=== PATIENT | female | born 2000 | race Caucasian/White ===

== ENCOUNTER → 2020-12-10 12:17 | Outpatient (CLI) | payer OTHER, SELFPAY ==
[2020-12-10] MEDS: COVID-19 VACC, Ad26(JANSSEN)/PF 0.5 ML IM (12:28)
== END ==
PROVIDERS: Visit Provider Internal Medicine
DX: Z23 Encounter for immunization (principal)
CPT/HCPCS: 0031A; 91303

== ENCOUNTER 2021-08-18 20:40 | Emergency (ER) | payer OTHER, MEDICAID, SELFPAY ==
[2021-08-18 20:56] VITALS: BP 134/84; PULSE 87; RESP 16; TEMP 36.7; O2SAT 98; BMI 39.4
--- NOTE | 2021-08-18 21:01 | ED_ITS ---
HPI - Abdominal Pain General Chief Complaint: Abdominal Pain Stated Complaint: sudden onset abd pain Time Seen by Provider: 08/18/21 20:44 Source: patient Mode of arrival: Ambulatory History of Present Illness HPI narrative: 21-year-old female nonsmoker with history of IBS presents with a chief complaint of a sudden onset left upper quadrant pain that started about 1 hour prior to her arrival. She states that seems to come and go in waves and without any obvious provocation or palliation. She is nauseated but denies any vomiting. S he denies any dysuria, frequency or urgency. She has no fever chills. She denies any change in medications or diet. She denies any bad food or recent travel. She does state that this feels different than her typical IBS discomfort. Related Data Previous Rx's Medication Instructions Recorded hyoscyamine sulfate 0.125 mg tablet 0.125 mg PO BID-QID PRN #20 tab 08/18/21 Review of Systems Review of Systems Narrative: GENERAL: Denies chills, fatigue, malaise, fever, sweats. HEENT: Denies sinus pain, ear pain, sore throat, difficulty swallowing, dizziness. RESPIRATORY: Denies dyspnea, cough, wheezing, hemoptysis, sputum. CARDIOVASCULAR: Denies chest pain, palpitations, orthopnea, edema, GASTROINTESTINAL: See HP : Denies dysuria, frequency, incontinence, hematuria, urinary retention. MUSCULOSKELETAL: denies weakness, joint pain, or bony pain SKIN: Denies rash, skin lesions, or other NEUROLOGIC: Denies weakness, headache, numbness, change in speech, confusion, seizures, incoordination. PSYCHIATRIC: No concerning psychosocial issues. 12 point review of systems is negative except for those stated above Patient History Social History Smoking Status: Never smoker Smoking Status: Never smoker Substance Use Type: does not use Exam Narrative Exam Narrative: GENERAL: 21 [] year old patient appears stated age. Well-developed patient, in mild distress. HEAD: Atraumatic. Normocephalic. EYES: Pupils equal round and reactive. Extraocular motions intact. No scleral icterus. No injection or drainage. ENT: Nose without bleeding, purulent drainage. Throat without erythema, tonsillar hypertrophy or exudate. Airway patent. NECK: Trachea midline. Non tender CARDIOVASCULAR: Regular rate and rhythm without murmurs, gallops, or rubs. RESPIRATORY: Clear to auscultation. Breath sounds equal bilaterally. No wheezes, rales, or rhonchi. GASTROINTESTINAL: Abdomen soft, tender in left upper quadrant, nondistended. Bowel sounds present in all 4 quadrants EXTREMITIES: No edema or joint tenderness. BACK: Nontender without deformity or crepitance. No flank tenderness. NEURO: AOx3. SKIN: No rash or erythema of visible areas Initial Vital Signs Initial Vital Signs: Vital Signs Temperature 98.1 F 08/18/21 20:56 Pulse Rate 87 08/18/21 20:56 Respiratory Rate 16 08/18/21 20:56 Blood Pressure 134/84 08/18/21 20:56 Pulse Oximetry 98 08/18/21 20:56 Course Orders Ordered: ED Orders 08/18/21 21:07 XR acute abdomen series Stat 08/18/21 21:20 Complete Blood Count AUTO DIFF Stat Comprehensive Metabolic Panel Stat Lipase Stat Discontinued Medications Sodium Chloride (Normal Saline 0.9%) 1,000 mls @ 1,000 mls/hr IV BOLUS ONE Stop: 08/18/21 22:04 Last Infusion: 08/18/21 22:48 Dose: 0 mls/hr Documented by: Admin: 08/18/21 21:31 Dose: 1,000 mls/hr Documented by: DANE Ondansetron HCl (Ondansetron 4 Mg/2 Ml Inj) 4 mg IV NOW ONE Stop: 08/18/21 21:06 Last Admin: 08/18/21 21:31 Dose: 4 mg Documented by: DANE Ondansetron HCl (Ondansetron 4 Mg Odt Prepack) 1 bottle MISC SEEINSTR ONE Stop: 08/18/21 22:29 Last Admin: 08/18/21 22:48 Dose: 1 bottle Documented by: DANE Pantoprazole Sodium (Pantoprazole 40 Mg Vial) 40 mg IV NOW ONE Stop: 08/18/21 21:06 Last Admin: 08/18/21 21:31 Dose: 40 mg Documented by: DANE Vital Signs Vital signs: Vital Signs - 8 hr 08/18/21 20:56 08/18/21 22:56 Temperature 98.1 F Pulse Rate 87 90 Respiratory Rate 16 20 Blood Pressure 134/84 135/63 Pulse Oximetry 98 98 MDM - Abdominal Pain Lab Data Result diagrams: 08/18/21 21:20 08/18/21 21:20 Labs: Lab Results 08/18/21 08/18/21 Range/Units 21:20 21:20 WBC 11.3 H (4.5-11.0) X10^3/uL RBC 4.56 (4.0-5.2) X10^6/uL Hgb 12.5 (12.0-16.0) g/dL Hct 38.0 (36-46) % MCV 83.3 (80-100) fL MCH 27.4 (26-34) PG MCHC 32.9 (30-36) % RDW 13.3 (11.6-14.8) % Plt Count 325 (150-400) X10^3/uL Neut % (Auto) 71.4 (50-75) % Lymph % (Auto) 23.4 L (25-40) % [place] % (Auto) 4.1 (3-14) % Eos % (Auto) 0.8 L (2-4) % Baso % (Auto) 0.3 (0-2) % Neut # (Auto) 8100 H (6700-2802) /uL Lymph # (Auto) 2700 (0343-2708) /uL [place] # (Auto) 500 (0-900) /uL Eos # (Auto) 100 (0-450) /uL Baso # (Auto) 0 (0-100) /uL Sodium 138 (137-145) mmol/L Potassium 3.9 (3.4-5.1) mmol/L Chloride 108 H (98-107) mmol/L Carbon Dioxide 28 (22-32) mmol/L BUN 8 (7-17) mg/dL Creatinine 0.44 L (0.52-1.04) mg/dL Estimated GFR > 60.0 (>60) mL/min BUN/Creatinine Ratio 18.2 (6-22) Glucose 129 H (70-100) mg/dL Calcium 8.6 (8.4-10.2) mg/dL Total Bilirubin 0.3 (0.2-1.3) mg/dL AST 27 (14-36) IU/L ALT 38 H (<35) IU/L Alkaline Phosphatase 67 (38-126) U/L Total Protein 7.5 (6.3-8.2) g/dL Albumin 4.0 (3.5-5.0) g/dL Globulin 3.5 (1.7-4.1) g/dL Albumin/Globulin Ratio 1.1 (1.0-2.8) Lipase 60 (23-300) U/L Point of care testing: Point of Care Testing Test Results Negative Urine Dip Bedside Urine Glucose Negative Bedside Urine Bilirubin - Negative Bedside Urine Ketone - Negative Urine Specific [place] 1.015 Bedside Urine Occult Blood - Negative Bedside Urine pH 8.5 Bedside Urine Protein - Negative Bedside Urine Urobilinogen - Negative Bedside Urine Nitrite - Negative Bedside Urine Leukocytes - Negative Esterase Imaging Data Abdominal x-ray: Radiologist's Impression: Anitha Baker??21??F??2000 ? Allergy/Adv: Not Recorded Close Chest/Abdomen X-ray (Signed) Josee Shields - 08/18/21 [place] [address] XRay Report Signed Patient: Anitha Baker MR#: [id number] : 2000 Acct:[id number] Age/Sex: 21 / F Date of Service: 08/18/21 Loc: ED Accession Number: [id number] ?? Procedure: XR acute abdomen series Ordering Provider: Eriberto Mares D.O. PROCEDURE:? XR ACUTE ABDOMEN SERIES ? INDICATIONS:? Abdominal pain ? TECHNIQUE:? One view chest and two views of the abdomen were acquired.? ? COMPARISON:? None. ? FINDINGS:? ? Surgical changes and devices:? None.? ? Chest:? Lungs are clear.? Heart size is normal.? No pleural effusions.? No pneumoperitoneum.? ? Abdomen:? Bowel gas pattern demonstrates moderate stool.? No obstruction.? No suspicious calcifications.? Visualized solid organ contours appear normal.? ? Bones:? No suspicious bony lesions.? ? IMPRESSION:? Constipation without obstruction. ? ? Dictated by: Josee Shields M.D. on 08/18/2021 at 22:19 ? ? Approved by: Josee Shields M.D. on 08/18/2021 at 22:20 ? MDM Narrative Medical decision making narrative: Patient with very reassuring history and physical exam. Labs show no significant findings and abdominal x-rays suggestive of constipation without obstruction. She had a near complete resolution of symptoms even before given any therapy through the IV. She ambulates to the department, pain is well controlled and she is tolerating orals. There is no indication for further imaging let alone hospitalization. She is given return precautions and questions have been answered to her apparent satisfaction Discharge Plan Departure Patient Disposition: Home Clinical Impression: Abdominal pain, Constipation Instructions: DI for Abdominal Pain-Adult Activity Restrictions/Additional Instructions: *You have been diagnosed with [ abdominal pain due to constipation ] *What to do: *Take over the counter medications as directed: 1. Metamucil - bulk forming laxative adds fiber 2. Colace - softens your stool 3. Dulcolax Suppository - stimulates your bowels from the bottom *Follow up with your primary care provider in 2-3 days, call for appointment *Return to ER if you should have any new, worsening or concerning symptoms *Drink plenty of water and eat foods high in fiber *Try to be as active as possible, consider walking your dog daily Prescription sent to [facility] your request Prescriptions: New hyoscyamine sulfate 0.125 mg tablet 0.125 mg PO BID-QID PRN (Reason: dyspepsia) Qty: 20 0RF
--- NOTE | 2021-08-18 21:07 | DI.RAD.S_ITS ---
PROCEDURE: XR ACUTE ABDOMEN SERIES INDICATIONS: Abdominal pain TECHNIQUE: One view chest and two views of the abdomen were acquired. COMPARISON: None. FINDINGS: Surgical changes and devices: None. Chest: Lungs are clear. Heart size is normal. No pleural effusions. No pneumoperitoneum. Abdomen: Bowel gas pattern demonstrates moderate stool. No obstruction. No suspicious calcifications. Visualized solid organ contours appear normal. Bones: No suspicious bony lesions. IMPRESSION: Constipation without obstruction. Dictated by: Josee Shields M.D. on 08/18/2021 at 22:19 Approved by: Josee Shields M.D. on 08/18/2021 at 22:20
[2021-08-18] MEDS: PANTOPRAZOLE 40 MG VIAL IV (21:31)
[2021-08-18] MEDS: SODIUM CHLORIDE 0.9% 1,000 ML 1000 ML IV (21:31)
[2021-08-18] MEDS: ONDANSETRON 4 MG/2 ML INJ IV (21:31)
[2021-08-18 21:35] LABS: Add Manual Diff / Slide Review NO; Basophils Absolute Auto 0 /uL (0-100); Basophils Percent Auto 0.3 % (0-2); Eosinophils Absolute Auto 100 /uL (0-450); Eosinophils Percent Auto 0.8 % (2-4); Hemoglobin 12.5 g/dL (12.0-16.0); Lymphocytes Absolute Auto 2700 /uL (1100-4500); Lymphocytes Percent Auto 23.4 % (25-40); Mean Corpuscular HGB Conc 32.9 % (30-36); Mean Corpuscular Hemoglobin 27.4 PG (26-34); Mean Corpuscular Volume 83.3 fL (80-100); Monocytes Absolute Auto 500 /uL (0-900); Monocytes Percent Auto 4.1 % (3-14); Neutrophils Absolute Auto 8100 /uL (1500-7000); Neutrophils Percent Auto 71.4 % (50-75); Platelet Count 325 X10^3/uL (150-400); Red Blood Cell Count 4.56 X10^6/uL (4.0-5.2); Red Cell Distribution Width 13.3 % (11.6-14.8); White Blood Cell Count 11.3 X10^3/uL (4.5-11.0)
[2021-08-18 21:45] LABS: Alanine Aminotransferase 38 IU/L (<35); Albumin Globulin Ratio 1.1 (1.0-2.8); Alkaline Phosphatase 67 U/L (38-126); Aspartate Aminotransferase 27 IU/L (14-36); BUN Creatinine Ratio 18.2 (6-22); Bilirubin Total 0.3 mg/dL (0.2-1.3); Blood Urea Nitrogen 8 mg/dL (7-17); Calcium 8.6 mg/dL (8.4-10.2); Carbon Dioxide 28 mmol/L (22-32); Chloride 108 mmol/L (98-107); Estimated Glomerular Filt Rate > 60.0 mL/min (>60); Globulin 3.5 g/dL (1.7-4.1); Glucose 129 mg/dL (70-100); HEMOLYSIS < 15 (0-50); Lipase 60 U/L (23-300); Potassium 3.9 mmol/L (3.4-5.1); Sodium 138 mmol/L (137-145); Total Protein 7.5 g/dL (6.3-8.2)
[2021-08-18] MEDS: ONDANSETRON 4 MG ODT PREPACK 1 BOTTLE MISC (22:48)
[2021-08-18 22:56] VITALS: BP 135/63; PULSE 90; RESP 20; O2SAT 98
== END 2021-08-18 22:58 | disposition home or self-care (01) ==
PROVIDERS: Emergency Provider Emergency Medicine
DX: K59.00 Constipation, unspecified (principal)
CPT/HCPCS: 36415; 74022; 80053; 81003; 81025; 83690; 85025; 96361; 96374; 96375; 99284; C9113; J2405

== ENCOUNTER 2021-10-02 15:43 | Emergency (ER) | payer OTHER, MEDICAID, SELFPAY ==
[2021-10-02 15:48] VITALS: BP 142/77; PULSE 81; RESP 16; TEMP 36.6; O2SAT 98; BMI 39.4
[2021-10-02 16:47] VITALS: BP 151/91; PULSE 78; RESP 18; O2SAT 99
[2021-10-02 17:30] LABS: Add Manual Diff / Slide Review NO; Basophils Absolute Auto 100 /uL (0-100); Basophils Percent Auto 0.5 % (0-2); Eosinophils Absolute Auto 100 /uL (0-450); Eosinophils Percent Auto 0.7 % (2-4); Hematocrit 37.5 % (36-46); Hemoglobin 12.4 g/dL (12.0-16.0); Lymphocytes Absolute Auto 2600 /uL (1100-4500); Lymphocytes Percent Auto 21.1 % (25-40); Mean Corpuscular HGB Conc 33.1 % (30-36); Mean Corpuscular Hemoglobin 27.7 PG (26-34); Mean Corpuscular Volume 83.6 fL (80-100); Monocytes Absolute Auto 800 /uL (0-900); Monocytes Percent Auto 6.2 % (3-14); Neutrophils Absolute Auto 8900 /uL (1500-7000); Neutrophils Percent Auto 71.5 % (50-75); Platelet Count 288 X10^3/uL (150-400); Red Blood Cell Count 4.49 X10^6/uL (4.0-5.2); Red Cell Distribution Width 13.6 % (11.6-14.8); White Blood Cell Count 12.4 X10^3/uL (4.5-11.0)
[2021-10-02 17:38] LABS: BUN Creatinine Ratio 32.6 (6-22); Blood Urea Nitrogen 15 mg/dL (7-17); Calcium 8.7 mg/dL (8.4-10.2); Carbon Dioxide 23 mmol/L (22-32); Chloride 110 mmol/L (98-107); Creatine Kinase 55 U/L (30-135); Estimated Glomerular Filt Rate > 60.0 mL/min (>60); Glucose 129 mg/dL (70-100); HEMOLYSIS < 15 (0-50); Potassium 3.6 mmol/L (3.4-5.1); Sodium 139 mmol/L (137-145)
[2021-10-02 17:39] LABS: D Dimer < 200 ng/mL (<230)
[2021-10-02 17:50] LABS: Troponin I < 0.012 ng/mL (0.01-0.034)
--- NOTE | 2021-10-02 18:10 | ED.CHESTPAIN ---
HPI - Chest Pain General Chief Complaint: Chest Pain Stated Complaint: Left sharp chest pain/stopped beating x20 minutes Time Seen by Provider: 10/02/21 17:07 Source: patient Mode of arrival: Ambulatory Limitations: no limitations Limitations: no limitations History of Present Illness HPI narrative: This is a 21-year-old female who presents with chest pain that started several hours earlier than last 1-2 hours. Patient has a history of asthma, anxiety and hypothyroidism. She states she does not take her medications daily. Patient states that the pain started substernally a little bit to the left side. She denies any shortness of breath. She denies any diaphoresis. No fevers or chills. No cold, cough or congestion. No nausea or vomiting. She has not had any new changes to her bowel movements but states she has IBS so she has intermittent diarrhea and constipation. She denies urinary symptoms. No rash or skin changes. She denies prior surgeries except for a benign lymph node removed from her right neck. Patient denies tobacco, alcohol or illicit besides marijuana gummies occasionally. No known drug allergies. Patient is accompanied by her biological father, there is family history of a grandparent with CHF and another grandparent with Parkinson's disease but no known cardiac, embolic or pulmonary history. Related Data Previous Rx's Medication Instructions Recorded hyoscyamine sulfate 0.125 mg tablet 0.125 mg PO BID-QID PRN #20 tab 08/18/21 Allergies Allergy/AdvReac Type Severity Reaction Status Date / Time No Known Drug Allergies Allergy Verified 10/02/21 16:00 Review of Systems Review of Systems ROS Unobtainable: All systems reviewed & are unremarkable except as noted in HPI and below Patient History Social History Smoking Status: Never smoker Smoking Status: Never smoker Substance Use Type: does not use Exam Narrative Exam Narrative: GENERAL: Alert and oriented x three, obese female in mild distress. HEENT: Head normocephalic, atraumatic, EOMI, pupils reactive, face symmetric, moist mucous membranes NECK: Supple, full range of motion CARDIOVASCULAR: Regular rate and rhythm without murmurs, rubs or gallops. RESPIRATORY: Breath sounds equal bilaterally, no wheezes rales or rhonchi. ABDOMEN: Soft, nontender. Nondistended. Normoactive bowel sounds all 4 quadrants. No guarding or rebound, rigidity, no mass : No CVA tenderness EXTREMITIES: Normal range of motion, no clubbing or edema. Neurovascularly intact NEUROLOGICAL: Cranial nerves II through XII grossly intact. Moving all extremities SKIN: Warm, dry, no petechiae, no rashes or lesions. Initial Vital Signs Initial Vital Signs: Vital Signs Temperature 97.8 F 10/02/21 15:48 Pulse Rate 81 10/02/21 15:48 Respiratory Rate 16 10/02/21 15:48 Blood Pressure 142/77 H 10/02/21 15:48 Pulse Oximetry 98 10/02/21 15:48 Scores HEART Score Heart Score history: Slightly Suspicious Heart Score EKG: Normal Heart Score Age: < 45 years old Heart Score risk factors: No known risk factors Heart Score troponin: < or = to normal limit Heart Score Total: 0 Course Orders Ordered: ED Orders 10/02/21 18:36 Chest [XR chest 1V] Stat 10/02/21 19:55 Troponin I Stat Reevaluation(s) Reevaluation #1: Patient does not have any chest pain. We reviewed her labs, chest x-ray. Discussed that it would be appropriate to repeat troponin at 2:00 a.m.. Patient is reluctant because she does not like the feel of the needle in her arm for the blood draw. Discussed risks versus benefits. Patient elects to try to do blood draw. Time: 19:27 Vital Signs Vital signs: Vital Signs - 8 hr 10/02/21 20:35 Pulse Rate 97 H Respiratory Rate 18 Blood Pressure 131/70 Pulse Oximetry 98 MDM - Chest Pain Lab Data Result diagrams: 10/02/21 17:20 10/02/21 17:20 Labs: Lab Results 10/02/21 10/02/21 10/02/21 Range/Units 17:20 17:20 17:20 WBC 12.4 H (4.5-11.0) X10^3/uL RBC 4.49 (4.0-5.2) X10^6/uL Hgb 12.4 (12.0-16.0) g/dL Hct 37.5 (36-46) % MCV 83.6 (80-100) fL MCH 27.7 (26-34) PG MCHC 33.1 (30-36) % RDW 13.6 (11.6-14.8) % Plt Count 288 (150-400) X10^3/uL Neut % (Auto) 71.5 (50-75) % Lymph % (Auto) 21.1 L (25-40) % [place] % (Auto) 6.2 (3-14) % Eos % (Auto) 0.7 L (2-4) % Baso % (Auto) 0.5 (0-2) % Neut # (Auto) 8900 H (8463-5968) /uL Lymph # (Auto) 2600 (8749-5943) /uL [place] # (Auto) 800 (0-900) /uL Eos # (Auto) 100 (0-450) /uL Baso # (Auto) 100 (0-100) /uL D-Dimer < 200 (<230) ng/mL Sodium 139 (137-145) mmol/L Potassium 3.6 (3.4-5.1) mmol/L Chloride 110 H (98-107) mmol/L Carbon Dioxide 23 (22-32) mmol/L BUN 15 (7-17) mg/dL Creatinine 0.46 L (0.52-1.04) mg/dL Estimated GFR > 60.0 (>60) mL/min BUN/Creatinine Ratio 32.6 H (6-22) Glucose 129 H (70-100) mg/dL Calcium 8.7 (8.4-10.2) mg/dL Total Creatine Kinase 55 (30-135) U/L CK-MB (CK-2) TNP CK-MB (CK-2) Rel Index TNP Troponin I < 0.012 (0.01-0.034) ng/mL 10/02/21 Range/Units 19:55 WBC (4.5-11.0) X10^3/uL RBC (4.0-5.2) X10^6/uL Hgb (12.0-16.0) g/dL Hct (36-46) % MCV (80-100) fL MCH (26-34) PG MCHC (30-36) % RDW (11.6-14.8) % Plt Count (150-400) X10^3/uL Neut % (Auto) (50-75) % Lymph % (Auto) (25-40) % [place] % (Auto) (3-14) % Eos % (Auto) (2-4) % Baso % (Auto) (0-2) % Neut # (Auto) (6830-8652) /uL Lymph # (Auto) (4013-9813) /uL [place] # (Auto) (0-900) /uL Eos # (Auto) (0-450) /uL Baso # (Auto) (0-100) /uL D-Dimer (<230) ng/mL Sodium (137-145) mmol/L Potassium (3.4-5.1) mmol/L Chloride (98-107) mmol/L Carbon Dioxide (22-32) mmol/L BUN (7-17) mg/dL Creatinine (0.52-1.04) mg/dL Estimated GFR (>60) mL/min BUN/Creatinine Ratio (6-22) Glucose (70-100) mg/dL Calcium (8.4-10.2) mg/dL Total Creatine Kinase (30-135) U/L CK-MB (CK-2) CK-MB (CK-2) Rel Index Troponin I < 0.012 (0.01-0.034) ng/mL Imaging Data Chest x-ray: Radiologist's Impression: [address] [address] XRay Report Signed Patient: Anitha Baker MR#: [id number] : 2000 Acct:[id number] Age/Sex: 21 / F Date of Service: 10/02/21 Loc: ED Accession Number: [id number] ?? Procedure: XR chest 1V Ordering Provider: Ching Singleton D.O. PROCEDURE:? XR CHEST 1V ? INDICATIONS:? chest pain ? TECHNIQUE:? One view of the chest was acquired.? ? COMPARISON:? [facility], CR, XR ACUTE ABDOMEN SERIES, 08/18/2021, 21:16. ? FINDINGS:? ? Surgical changes and devices:? None.? ? Lungs and pleura:? Lungs are clear.? No pleural effusions or pneumothorax.? ? Mediastinum:? Mediastinal contours appear normal.? Heart size is normal.? ? Bones and chest wall:? No suspicious bony lesions.? Overlying soft tissues appear unremarkable.? ? IMPRESSION:? Chest without acute cardiopulmonary abnormalities.? No focal airspace disease. ? ? Dictated by: Rene Sauceda M.D. on 10/02/2021 at 18:59 ? ? Approved by: Rene Sauceda M.D. on 10/02/2021 at 18:59? ECG Data Attestation: I personally reviewed and interpreted this ECG as follows: Prior ECG tracings: not available for review Interpretation: Sinus rhythm, rate 81 CO 120 QRS [address] QTC [address]. No acute ST elevation or depression. No priors for comparison. MDM Narrative Medical decision making narrative: This is a 21-year-old female comes in with complaint of left chest pain and a sensation that her heart stops beating for a 2nd and then restarted, she had pain she states maybe an hour although in her complaint 20 minutes. Patient is asymptomatic at this time. She is obese but does not have any other known risk factors at this time. Remove family risk factors besides a grandfather that had CHF and Parkinson's. Patient's heart score is 3. Chest x-ray is negative, labs are reassuring patient does not have other changes that are suspicious. Discharge Plan Departure Patient Disposition: Home Clinical Impression: Chest pain Instructions: DI for Chest Pain Activity Restrictions/Additional Instructions: Follow-up with your physician for recheck. Your labs, EKG and imaging today are reassuring. Please return for new or worsening symptoms, persistent chest pain, passing out, shortness of breath, fevers, new swelling in your extremities or other new or concerning symptoms. Prescriptions: No Action hyoscyamine sulfate 0.125 mg tablet 0.125 mg PO BID-QID PRN (Reason: dyspepsia) Qty: 20 0RF
--- NOTE | 2021-10-02 18:36 | DI.RAD.S_ITS ---
PROCEDURE: XR CHEST 1V INDICATIONS: chest pain TECHNIQUE: One view of the chest was acquired. COMPARISON: [facility], CR, XR ACUTE ABDOMEN SERIES, 08/18/2021, 21:16. FINDINGS: Surgical changes and devices: None. Lungs and pleura: Lungs are clear. No pleural effusions or pneumothorax. Mediastinum: Mediastinal contours appear normal. Heart size is normal. Bones and chest wall: No suspicious bony lesions. Overlying soft tissues appear unremarkable. IMPRESSION: Chest without acute cardiopulmonary abnormalities. No focal airspace disease. Dictated by: Rene Sauceda M.D. on 10/02/2021 at 18:59 Approved by: Rene Sauceda M.D. on 10/02/2021 at 18:59
[2021-10-02 20:26] LABS: Troponin I < 0.012 ng/mL (0.01-0.034)
[2021-10-02 20:35] VITALS: BP 131/70; PULSE 97; RESP 18; O2SAT 98
== END 2021-10-02 20:37 | disposition home or self-care (01) ==
PROVIDERS: Emergency Medicine; Emergency Provider Emergency Medicine
DX: R07.9 Chest pain, unspecified (principal)
CPT/HCPCS: 36415; 71045; 80048; 82550; 84484; 85025; 85379; 93005; 93010; 99283; 99284

== ENCOUNTER 2022-02-05 23:33 | Emergency (ER) | payer OTHER, MEDICAID, SELFPAY ==
[2022-02-05 23:48] VITALS: BP 129/71; PULSE 90; RESP 18; TEMP 36.8; O2SAT 98; BMI 40.3
[2022-02-06] VITALS (7 sets, daily range): BP systolic 120–126; BP diastolic 63–80; PULSE 73–83; RESP 10–15; O2SAT 96–98
--- NOTE | 2022-02-06 00:12 | DI.RAD.S_ITS ---
PROCEDURE: XR CHEST 1V INDICATIONS: chest pain TECHNIQUE: One view of the chest was acquired. COMPARISON: [facility], CR, XR CHEST 1V, 10/02/2021, 18:40. FINDINGS: Surgical changes and devices: None. Lungs and pleura: Lungs are clear. No pleural effusions or pneumothorax. Mediastinum: Mediastinal contours appear normal. Heart size is normal. Bones and chest wall: No suspicious bony lesions. Overlying soft tissues appear unremarkable. IMPRESSION: 1. No acute cardiopulmonary disease. Dictated by: Gokul Villanueva M.D. on 02/06/2022 at 1:57 Approved by: Gokul Villanueva M.D. on 02/06/2022 at 1:58
[2022-02-06 00:21] LABS: Add Manual Diff / Slide Review NO; Basophils Absolute Auto 0 /uL (0-100); Basophils Percent Auto 0.3 % (0-2); Eosinophils Absolute Auto 100 /uL (0-450); Hematocrit 39.5 % (36-46); Hemoglobin 13.1 g/dL (12.0-16.0); Lymphocytes Absolute Auto 2900 /uL (1100-4500); Lymphocytes Percent Auto 22.7 % (25-40); Mean Corpuscular HGB Conc 33.2 % (30-36); Mean Corpuscular Hemoglobin 27.8 PG (26-34); Mean Corpuscular Volume 83.6 fL (80-100); Monocytes Absolute Auto 600 /uL (0-900); Monocytes Percent Auto 4.5 % (3-14); Neutrophils Absolute Auto 9000 /uL (1500-7000); Neutrophils Percent Auto 71.5 % (50-75); Platelet Count 331 X10^3/uL (150-400); Red Blood Cell Count 4.73 X10^6/uL (4.0-5.2); Red Cell Distribution Width 13.5 % (11.6-14.8); White Blood Cell Count 12.6 X10^3/uL (4.5-11.0)
[2022-02-06 00:33] LABS: Alanine Aminotransferase 20 IU/L (<35); Albumin 4.1 g/dL (3.5-5.0); Albumin Globulin Ratio 1.2 (1.0-2.8); Alkaline Phosphatase 62 U/L (38-126); Aspartate Aminotransferase 21 IU/L (14-36); BUN Creatinine Ratio 22.2 (6-22); Bilirubin Total 0.4 mg/dL (0.2-1.3); Blood Urea Nitrogen 10 mg/dL (7-17); Calcium 8.8 mg/dL (8.4-10.2); Carbon Dioxide 23 mmol/L (22-32); Chloride 106 mmol/L (98-107); Creatine Kinase 39 U/L (30-135); Estimated Glomerular Filt Rate > 60 mL/min (>60); Globulin 3.5 g/dL (1.7-4.1); Glucose 152 mg/dL (70-100); HEMOLYSIS < 15 (0-50); Lipase 61 U/L (23-300); Magnesium 1.8 mg/dL (1.6-2.3); Potassium 3.7 mmol/L (3.4-5.1); Sodium 140 mmol/L (137-145); Total Protein 7.6 g/dL (6.3-8.2)
[2022-02-06 00:44] LABS: Troponin I < 0.012 ng/mL (0.01-0.034)
--- NOTE | 2022-02-06 02:45 | ED_ITS ---
HPI - Chest Pain General Chief Complaint: Chest Pain Stated Complaint: chest pain, high heart rate, Time Seen by Provider: 02/06/22 00:04 Source: patient Mode of arrival: Ambulatory Limitations: no limitations History of Present Illness HPI narrative: 21-year-old woman with no significant medical history noticed that she had a recent heart sensation for 4-5 beats approximately an hour prior to presentation. She had another episode and then noticed some chest pain that she describes as tightness that is different from asthma type tightness that she has experienced previously. It has completely resolved. She has not been drinking, no extra stimulants no unusual recreational drugs or experimentation with ma mnjuana. She notes that she does have occasional irritable bowel symptoms but is feeling well with this at this point she has not been particularly anxious and is not significantly sleep deprived. There is no family history of significant cardiac arrhythmia or early cardiac . Related Data Previous Rx's Medication Instructions Recorded hyoscyamine sulfate 0.125 mg tablet 0.125 mg PO BID-QID PRN dyspepsia 08/18/21 #20 tabs Allergies Allergy/AdvReac Type Severity Reaction Status Date / Time No Known Drug Allergies Allergy Verified 02/05/22 23:48 Review of Systems Review of Systems Narrative: Remainder of complete review of systems is otherwise unremarkable except for that included in the HPI. Patient History Social History Smoking Status: Never smoker Smoking Status: Never smoker Substance Use Type: does not use Exam Initial Vital Signs Initial Vital Signs: Vital Signs Temperature 98.3 F 02/05/22 23:48 Pulse Rate 90 02/05/22 23:48 Respiratory Rate 18 02/05/22 23:48 Blood Pressure 129/71 02/05/22 23:48 Pulse Oximetry 98 02/05/22 23:48 Oxygen Delivery Method 02/05/22 23:48 General: Healthy appearing, in no acute distress. Able to give a complete and coherent history. Well-nourished well-developed HEENT: Moist mucous membranes, normal sclera with reactive pupils, Neck: supple Respiratory: Lungs are clear to auscultation, no wheezing no rales no rhonchi. Full and symmetrical air movement Cardiac: Regular rate and rhythm no murmurs no bruits Abdomen: Soft, nontender, good bowel tones, no flank pain Skin: Warm and dry, no rashes Neurologic: Grossly neurologically intact with no obvious asymmetries or ab normalities Extremities: No trauma, well perfused Psych: Cooperative, appropriate insight and affect Course Orders Ordered: ED Orders 02/06/22 00:12 XR chest 1V Stat EKG-12 Lead Stat 02/06/22 00:15 Complete Blood Count AUTO DIFF Stat Comprehensive Metabolic Panel Stat Lipase Stat Magnesium Stat Troponin & CK Cardiac Panel Stat Vital Signs Vital signs: Vital Signs - 8 hr 02/05/22 23:48 02/06/22 00:19 02/06/22 00:19 Temperature 98.3 F Pulse Rate 90 83 Respiratory Rate 18 11 L Blood Pressure 129/71 122/80 Pulse Oximetry 98 98 Oxygen Delivery Method Room Air Room Air MDM - Chest Pain Lab Data Result diagrams: 02/06/22 00:15 02/06/22 00:15 Labs: Lab Results 02/06/22 02/06/22 Range/Units 00:15 00:15 WBC 12.6 H (4.5-11.0) X10^3/uL RBC 4.73 (4.0-5.2) X10^6/uL Hgb 13.1 (12.0-16.0) g/dL Hct 39.5 (36-46) % MCV 83.6 (80-100) fL MCH 27.8 (26-34) PG MCHC 33.2 (30-36) % RDW 13.5 (11.6-14.8) % Plt Count 331 (150-400) X10^3/uL Neut % (Auto) 71.5 (50-75) % Lymph % (Auto) 22.7 L (25-40) % [place] % (Auto) 4.5 (3-14) % Eos % (Auto) 1.0 L (2-4) % Baso % (Auto) 0.3 (0-2) % Neut # (Auto) 9000 H (1264-8127) /uL Lymph # (Auto) 2900 (5294-0354) /uL [place] # (Auto) 600 (0-900) /uL Eos # (Auto) 100 (0-450) /uL Baso # (Auto) 0 (0-100) /uL Sodium 140 (137-145) mmol/L Potassium 3.7 (3.4-5.1) mmol/L Chloride 106 (98-107) mmol/L Carbon Dioxide 23 (22-32) mmol/L BUN 10 (7-17) mg/dL Creatinine 0.45 L (0.52-1.04) mg/dL Estimated GFR > 60 (>60) mL/min BUN/Creatinine Ratio 22.2 H (6-22) Glucose 152 H (70-100) mg/dL Calcium 8.8 (8.4-10.2) mg/dL Magnesium 1.8 (1.6-2.3) mg/dL Total Bilirubin 0.4 (0.2-1.3) mg/dL AST 21 (14-36) IU/L ALT 20 (<35) IU/L Alkaline Phosphatase 62 (38-126) U/L Total Creatine Kinase 39 (30-135) U/L CK-MB (CK-2) TNP CK-MB (CK-2) Rel Index TNP Troponin I < 0.012 (0.01-0.034) ng/mL Total Protein 7.6 (6.3-8.2) g/dL Albumin 4.1 (3.5-5.0) g/dL Globulin 3.5 (1.7-4.1) g/dL Albumin/Globulin Ratio 1.2 (1.0-2.8) Lipase 61 (23-300) U/L Imaging Data Chest x-ray: Radiologist's Impression: FINDINGS:? ? Surgical changes and devices:? None.? ? Lungs and pleura:? Lungs are clear.? No pleural effusions or pneumothorax.? ? Mediastinum:? Mediastinal contours appear normal.? Heart size is normal.? ? Bones and chest wall:? No suspicious bony lesions.? Overlying soft tissues appear unremarkable.? ? IMPRESSION:? ? 1.? No acute cardiopulmonary disease. ? ? ? Dictated by: Gokul Villanueva M.D. on 02/06/2022 at 1:57 ? ? ECG Data Interpretation: Sinus rhythm at a rate of 90 Normal intervals, normal axis No acute ischemic changes MDM Narrative Medical decision making narrative: 21-year-old woman with self-reported high anxiety levels feeling some palpitations this evening. She denies any stimulants including caffeine, no weight loss drugs no marijuana and no [id number] medications or antihistamines. She has been monitored now for 4 hours in the emergency department with reassuring telemetry monitoring and a completely negative cardiac workup. No evidence of significant arrhythmias, acute coronary syndrome, infection, pulmonary embolism, pneumothorax or alternate explanation that needs additional workup for hospitalization at this time. All findings reviewed with the patient questions are answered and she is safe for home discharge Discharge Plan Departure Patient Disposition: Home Clinical Impression: Heart palpitations Instructions: DI for Arrhythmias Activity Restrictions/Additional Instructions: Thank you for coming in today It is frightening when you can feel abnormalities with your heart. The vast majority of irregular heartbeats, palpitations or short bits of fluttering in your chest are entirely benign Your workup today was very reassuring. Your chest x-ray was normal and shows a normal shape and size for your heart. Your EKG was absolutely perfect and your lab work was entirely reassuring. Please make sure that you follow-up with your primary care physician and if you find that you have additional concerns please feel free to return to the emergency department Prescriptions: No Action hyoscyamine sulfate 0.125 mg tablet 0.125 mg PO BID-QID PRN (Reason: dyspepsia) Qty: 20 0RF Referrals: Miscellaneous,Doctor, [Primary Care Provider] -
== END 2022-02-06 03:10 | disposition home or self-care (01) ==
PROVIDERS: Emergency Provider Emergency Medicine
DX: R00.2 Palpitations (principal)
CPT/HCPCS: 36415; 71045; 80053; 82550; 83690; 83735; 84484; 85025; 93005; 93010; 99284

== ENCOUNTER → 2022-02-28 14:09 | Outpatient (CLI) | payer OTHER, MEDICAID, SELFPAY | PROVIDERS: Visit Provider Nurse Practitioner Critical Care Medicine | DX: J02.9 Acute pharyngitis, unspecified (principal) | CPT/HCPCS: 87070; 87880 ==

== ENCOUNTER → 2022-10-10 08:58 | Outpatient (CLI) | payer OTHER, MEDICAID, SELFPAY ==
[2022-10-10 10:08] LABS: Add Manual Diff / Slide Review NO; Basophils Absolute Auto 0 /uL (0-100); Basophils Percent Auto 0.2 % (0-2); Eosinophils Absolute Auto 100 /uL (0-450); Hematocrit 37.7 % (36-46); Hemoglobin 12.6 g/dL (12.0-16.0); Lymphocytes Absolute Auto 3500 /uL (1100-4500); Lymphocytes Percent Auto 27.4 % (25-40); Mean Corpuscular HGB Conc 33.4 % (30-36); Mean Corpuscular Hemoglobin 27.3 PG (26-34); Mean Corpuscular Volume 81.7 fL (80-100); Monocytes Absolute Auto 600 /uL (0-900); Monocytes Percent Auto 4.6 % (3-14); Neutrophils Absolute Auto 8500 /uL (1500-7000); Neutrophils Percent Auto 66.8 % (50-75); Platelet Count 327 X10^3/uL (150-400); Red Blood Cell Count 4.61 X10^6/uL (4.0-5.2); Red Cell Distribution Width 13.9 % (11.6-14.8); White Blood Cell Count 12.7 X10^3/uL (4.5-11.0)
[2022-10-10 10:37] LABS: Erythrocyte Sedimentation Rate 27 MM/HR (0-20)
[2022-10-10 10:46] LABS: Alanine Aminotransferase 22 IU/L (<35); Albumin 3.9 g/dL (3.5-5.0); Albumin Globulin Ratio 1.2 (1.0-2.8); Alkaline Phosphatase 76 U/L (38-126); Aspartate Aminotransferase 21 IU/L (14-36); BUN Creatinine Ratio 26.1 (6-22); Bilirubin Total 0.4 mg/dL (0.2-1.3); Blood Urea Nitrogen 12 mg/dL (7-17); C-Reactive Protein Quant 1.6 mg/dL (<1.0); Calcium 8.3 mg/dL (8.4-10.2); Carbon Dioxide 24 mmol/L (22-32); Chloride 104 mmol/L (98-107); Cholesterol 156 mg/dL (140-199); Estimated Glomerular Filt Rate > 60 mL/min (>60); Globulin 3.3 g/dL (1.7-4.1); Glucose 84 mg/dL (70-100); HDL Cholesterol 43 mg/dL (40-60); HEMOLYSIS < 15 (0-50); LDL Cholesterol Calculated 90 mg/dL (<100); Potassium 3.7 mmol/L (3.4-5.1); Sodium 139 mmol/L (137-145); Total Protein 7.2 g/dL (6.3-8.2); Triglycerides 114 mg/dL (35-150); Uric Acid 4.1 mg/dL (2.5-6.2)
== END ==
PROVIDERS: PCP Family Medicine; Referring Provider Family Medicine; Visit Provider Family Medicine
DX: E66.01 Morbid (severe) obesity due to excess calories (principal); M25.50 Pain in unspecified joint; R73.9 Hyperglycemia, unspecified
CPT/HCPCS: 36415; 80053; 80061; 83036; 84443; 84550; 85025; 85651; 86140

== ENCOUNTER 2023-05-27 12:37 | Emergency (ER) | payer OTHER, MEDICAID, SELFPAY ==
[2023-05-27] VITALS (7 sets, daily range): BP systolic 117–126; BP diastolic 64–73; PULSE 76–93; RESP 16–32; TEMP 37.1; O2SAT 95–97; BMI 39.9
--- NOTE | 2023-05-27 12:50 | DI.RAD.S_ITS ---
PROCEDURE: XR CHEST 1V INDICATIONS: chest pain TECHNIQUE: One view of the chest was acquired. COMPARISON: [facility], CR, XR CHEST 1V, 02/06/2022, 0:19. [facility], CR, XR CHEST 1V, 10/02/2021, 18:40. FINDINGS: Surgical changes and devices: None. Lungs and pleura: On this semiupright portable chest examination, no large pneumothorax or large pleural effusions are seen. No focal infiltrates are seen. Mediastinum: Mediastinal contours appear normal. Heart size is normal. Bones and chest wall: No suspicious bony lesions. Overlying soft tissues appear unremarkable. IMPRESSION: Unremarkable portable chest. Dictated by: Lv Rosenbaum M.D. on 05/27/2023 at 12:36 Approved by: Lv Rosenbaum M.D. on 05/27/2023 at 12:36
--- NOTE | 2023-05-27 13:00 | ED.ARRPALP ---
HPI - Arrhythmia/Palpitations General Chief Complaint: Arrhythmia/Palpitations Stated Complaint: palpatations and anxiety Time Seen by Provider: 05/27/23 12:58 Source: patient and family Mode of arrival: Ambulatory History of Present Illness HPI narrative: 23-year-old female with reported anxiety but no other medical issues not currently on medications. Patient states has had palpitation for years typically 0-3 times daily. Started tracking palpitation sensations in March because she ?likes to track things?. Patient states yesterday had 75 episodes of palpitations. She states it will feel little tight in her stomach. Denies shortness of breath, no syncope, no diaphoresis. No cold cough or congestion. No nausea or vomiting. Normal bowel movements for the patient. States she has IBS so does sometimes have diarrhea. But nothing atypical for her. No bloody or melanotic stools. No urinary symptoms. No new swelling in extremities. Patient states no other medical issues not on any prescriptions. States only surgery was a lymph node removed in 2014 because it was enlarged and was benign. Has several dietary allergies but denies any medication allergies. No tobacco, rare alcohol last drink was in February. No recreational drugs or illicit. No caffeine. Father is at bedside they state family history of anxiety. Coronary artery disease grandfather at 69, grandfather in his 80s, no sudden cardiac , no known cardiac rhythm, embolic disorders. Related Data Allergies Allergy/AdvReac Type Severity Reaction Status Date / Time peanut Allergy Severe Peeling Verified 10/02/22 15:34 skin in mouth Review of Systems Review of Systems ROS Unobtainable: All systems reviewed & are unremarkable except as noted in HPI and below Patient History Medical History Hypothyroidism Social History Smoking Status: Never smoker alcohol intake: current (1-2 drinks/month ) substance use type: marijuana (former, for pain and anxiety ) Smoking Status: Never smoker Substance Use Type: does not use Exam Narrative Exam Narrative: GENERAL: Alert and oriented x three, well-appearing obese female in mild distress HEENT: Head normocephalic, atraumatic, EOMI, pupils reactive, face symmetric, moist mucous membranes NECK: Supple, full range of motion CARDIOVASCULAR: Regular rate and rhythm without murmurs, rubs or gallops. No JVD. No swelling bilateral lower extremities. RESPIRATORY: Breath sounds equal bilaterally, no wheezes rales or rhonchi. No tachypnea or accessory muscle use. ABDOMEN: Soft, nontender. Normoactive bowel sounds all 4 quadrants. No guarding or rebound, rigidity, no mass : No CVA tenderness EXTREMITIES: Normal range of motion, no clubbing or edema. Neurovascularly intact NEUROLOGICAL: Cranial nerves II through XII grossly intact. Moving all extremities SKIN: Warm, dry, no petechiae, no rashes or lesions. Initial Vital Signs Initial Vital Signs: Vital Signs Temperature 98.7 F 05/27/23 12:41 Pulse Rate 93 H 05/27/23 12:41 Respiratory Rate 16 05/27/23 12:41 Blood Pressure 126/73 05/27/23 12:41 Pulse Oximetry 95 05/27/23 12:41 Oxygen Delivery Method Room Air 05/27/23 12:41 Course Orders Ordered: ED Orders 05/27/23 12:50 XR chest 1V Stat 05/27/23 12:51 EKG-12 Lead Stat 05/27/23 13:11 Complete Blood Count AUTO DIFF Stat Comprehensive Metabolic Panel Stat Lipase Stat Magnesium Stat PTT Partial Thromboplastin David Stat Prothrombin Time INR Stat TSH [Thyroid Stimulating Hormone] Stat Troponin & CK Cardiac Panel Stat Vital Signs Vital signs: Vital Signs - 8 hr 05/27/23 12:41 05/27/23 12:55 05/27/23 13:00 Temperature 98.7 F Pulse Rate 93 H 87 85 Respiratory Rate 16 24 32 H Blood Pressure 126/73 Pulse Oximetry 95 97 96 Oxygen Delivery Method Room Air 05/27/23 13:11 05/27/23 13:11 05/27/23 13:30 Temperature Pulse Rate 81 81 Respiratory Rate 25 H 24 Blood Pressure 122/73 Pulse Oximetry 96 95 Oxygen Delivery Method Room Air 05/27/23 13:33 05/27/23 13:33 05/27/23 14:00 Temperature Pulse Rate 77 76 Respiratory Rate 23 17 Blood Pressure 125/64 Pulse Oximetry 96 95 Oxygen Delivery Method 05/27/23 14:00 Temperature Pulse Rate Respiratory Rate Blood Pressure 117/64 Pulse Oximetry Oxygen Delivery Method MDM - Arrhythmia/Palpitations Lab Data 05/27/23 13:11 05/27/23 13:11 Labs: Lab Results 05/27/23 Range/Units 13:11 WBC 10.1 (4.5-11.0) X10^3/uL RBC 4.54 (4.0-5.2) X10^6/uL Hgb 12.7 (12.0-16.0) g/dL Hct 37.2 (36-46) % MCV 81.9 (80-100) fL MCH 27.9 (26-34) PG MCHC 34.1 (30-36) % RDW 13.9 (11.6-14.8) % Plt Count 299 (150-400) X10^3/uL Neut % (Auto) 72.6 (50-75) % Lymph % (Auto) 22.2 L (25-40) % [place] % (Auto) 4.0 (3-14) % Eos % (Auto) 0.7 L (2-4) % Baso % (Auto) 0.5 (0-2) % Neut # (Auto) 7400 H (8267-6607) /uL Lymph # (Auto) 2200 (9070-0692) /uL [place] # (Auto) 400 (0-900) /uL Eos # (Auto) 100 (0-450) /uL Baso # (Auto) 0 (0-100) /uL PT 13.7 H (10.1-12.7) SECONDS INR 1.2 (0.9-1.3) APTT 34 (26-36) SECONDS Sodium 136 L (137-145) mmol/L Potassium 3.8 (3.4-5.1) mmol/L Chloride 104 (98-107) mmol/L Carbon Dioxide 26 (22-32) mmol/L BUN 12 (7-17) mg/dL Creatinine 0.52 (0.52-1.04) mg/dL Estimated GFR > 60 (>60) mL/min BUN/Creatinine Ratio 23.1 H (6-22) Glucose 158 H (70-100) mg/dL Calcium 9.0 (8.4-10.2) mg/dL Magnesium 1.9 (1.6-2.3) mg/dL Total Bilirubin 0.2 (0.2-1.3) mg/dL AST 19 (14-36) IU/L ALT 20 (<35) IU/L Alkaline Phosphatase 68 (38-126) U/L Total Creatine Kinase 53 (30-135) U/L Troponin I < 0.012 (0.01-0.034) ng/mL Total Protein 7.4 (6.3-8.2) g/dL Albumin 4.0 (3.5-5.0) g/dL Globulin 3.4 (1.7-4.1) g/dL Albumin/Globulin Ratio 1.2 (1.0-2.8) Lipase 49 (23-300) U/L TSH 1.59 (0.47-4.68) uIU/mL Imaging Data Chest x-ray: Radiologist's Impresson: Close Chest X-Ray (Signed) Lv Rosenbaum - 05/27/23 Chest X-Ray (Signed) Gokul Villanueva - 02/06/22 Chest X-Ray (Signed) Rene Sauceda - 10/02/21 Chest/Abdomen X-ray (Signed) Josee Shields - 08/18/21 [facility] [address] XRay Report Signed Patient: Anitha Baker MR#: [id number] : 2000 Acct:[id number] Age/Sex: 23 / F Date of Service: 05/27/23 Loc: ED Accession Number: [id number] Procedure: XR chest 1V Ordering Provider: Ching Singleton D.O. PROCEDURE: XR CHEST 1V INDICATIONS: chest pain TECHNIQUE: One view of the chest was acquired. COMPARISON: [facility], , XR CHEST 1V, 02/06/2022, 0:19. [facility], , XR CHEST 1V, 10/02/2021, 18:40. FINDINGS: Surgical changes and devices: None. Lungs and pleura: On this semiupright portable chest examination, no large pneumothorax or large pleural effusions are seen. No focal infiltrates are seen. Mediastinum: Mediastinal contours appear normal. Heart size is normal. Bones and chest wall: No suspicious bony lesions. Overlying soft tissues appear unremarkable. IMPRESSION: Unremarkable portable chest. Dictated by: Lv Rosenbaum M.D. on 05/27/2023 at 12:36 Approved by: Lv Rosenbaum M.D. on 05/27/2023 at 12:36 ECG Data Attestation: I personally reviewed and interpreted this ECG as follows: Prior ECG tracings: available for review Interpretation: Sinus rhythm with sinus arrhythmia rate 83 MN 132 QRS of 96 QTC 437. Patient has RSR in 3 which appears different from prior, no other acute ST changes. MDM Narrative Medical decision making narrative: Healthy 23-year-old female with complaint of palpitations. Patient has some sinus rhythm but no other acute changes on EKG, on tele she is not having significant PACs or other arrhythmias. Chest x-ray shows no acute change labs show appropriate CBC, INR is negative, electrolytes renal function appropriate. Glucose 158- LFTs negative troponin and TSH is 1.59. Patient does not have any other high-risk factors. Patient felt appropriate for discharge home can follow up with primary care for Holter monitor if she continues to have sensation of change. She is been monitoring these by radiating down on paper. Discharge Plan Departure Patient Disposition: Home Clinical Impression: Heart palpitations Instructions: DI for Palpitations Activity Restrictions/Additional Instructions: Follow-up for recheck with primary care. Can discuss if they feel it is appropriate to have a Holter monitor or other workup. 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 Please return for new or worsening symptoms new chest pain, shortness of breath, lightheadedness or passing out, new swelling in her extremities or other new or concerning changes. Referrals: Clarita Schmidt DO [Primary Care Provider] - Stand Alone Forms: Patient Portal/API
[2023-05-27 13:18] LABS: Add Manual Diff / Slide Review NO; Basophils Absolute Auto 0 /uL (0-100); Basophils Percent Auto 0.5 % (0-2); Eosinophils Absolute Auto 100 /uL (0-450); Eosinophils Percent Auto 0.7 % (2-4); Hematocrit 37.2 % (36-46); Hemoglobin 12.7 g/dL (12.0-16.0); Lymphocytes Absolute Auto 2200 /uL (1100-4500); Lymphocytes Percent Auto 22.2 % (25-40); Mean Corpuscular HGB Conc 34.1 % (30-36); Mean Corpuscular Hemoglobin 27.9 PG (26-34); Mean Corpuscular Volume 81.9 fL (80-100); Monocytes Absolute Auto 400 /uL (0-900); Neutrophils Absolute Auto 7400 /uL (1500-7000); Neutrophils Percent Auto 72.6 % (50-75); Platelet Count 299 X10^3/uL (150-400); Red Blood Cell Count 4.54 X10^6/uL (4.0-5.2); Red Cell Distribution Width 13.9 % (11.6-14.8); White Blood Cell Count 10.1 X10^3/uL (4.5-11.0)
[2023-05-27 13:23] LABS: INR 1.2 (0.9-1.3); Prothrombin Time 13.7 SECONDS (10.1-12.7)
[2023-05-27 13:26] LABS: PTT Partial Thromboplastin Tim 34 SECONDS (26-36)
[2023-05-27 13:29] LABS: Alanine Aminotransferase 20 IU/L (<35); Albumin Globulin Ratio 1.2 (1.0-2.8); Alkaline Phosphatase 68 U/L (38-126); Aspartate Aminotransferase 19 IU/L (14-36); BUN Creatinine Ratio 23.1 (6-22); Bilirubin Total 0.2 mg/dL (0.2-1.3); Blood Urea Nitrogen 12 mg/dL (7-17); Carbon Dioxide 26 mmol/L (22-32); Chloride 104 mmol/L (98-107); Creatine Kinase 53 U/L (30-135); Estimated Glomerular Filt Rate > 60 mL/min (>60); Globulin 3.4 g/dL (1.7-4.1); Glucose 158 mg/dL (70-100); HEMOLYSIS < 15 (0-50); Lipase 49 U/L (23-300); Magnesium 1.9 mg/dL (1.6-2.3); Potassium 3.8 mmol/L (3.4-5.1); Sodium 136 mmol/L (137-145); Total Protein 7.4 g/dL (6.3-8.2)
[2023-05-27 13:40] LABS: Troponin I < 0.012 ng/mL (0.01-0.034)
[2023-05-27 14:06] LABS: Thyroid Stimulating Hormone 1.59 uIU/mL (0.47-4.68)
== END 2023-05-27 14:24 | disposition home or self-care (01) ==
PROVIDERS: Emergency Provider Emergency Medicine; PCP Family Medicine
DX: R00.2 Palpitations (principal); R07.9 Chest pain, unspecified
CPT/HCPCS: 36415; 71045; 80053; 82550; 83690; 83735; 84443; 84484; 85025; 85610; 85730; 93005; 99284

== ENCOUNTER 2023-06-12 12:51 | Emergency (ER) | payer OTHER, MEDICAID, SELFPAY ==
[2023-06-12 13:14] VITALS: BP 142/78; PULSE 82; RESP 16; TEMP 37.2; O2SAT 99; BMI 39.9
[2023-06-12] MEDS: MAG HYDROX/ALUMINUM/SIMETH SUS 20 ML, LIDOCAINE VISCOUS 2% 15 ML PO (14:03)
[2023-06-12] MEDS: PANTOPRAZOLE DR 20 MG TABLET PO (14:04)
--- NOTE | 2023-06-12 14:17 | ED_ITS ---
HPI - Abdominal Pain <Rani Rojas PA-C - Last Filed: 06/12/23 19:46> General Chief Complaint: Abdominal Pain Stated Complaint: abdominal pain Time Seen by Provider: 06/12/23 13:31 Source: patient Mode of arrival: Ambulatory History of Present Illness HPI narrative: Patient is a 23-year-old who presents with 1.5 days of epigastric pain. The pain is constant, worse when they bend over. The patient reports they feel hungry but when they eat, the pain is worse. There has been no nausea or vomiting. Patient has a history of IBS but this is well managed. No recent diarrhea or constipation and no blood in the stool. Patient reports a history of intermittent indigestion approximately 2-3 times per month, often triggered by spicy foods, for which they take [id number]-hsu-[id number] medications with relief. This feels different. Patient denies any shortness of breath, radiation of pain, fever. Patient has taken Tylenol with minimal relief. Patient does not take NSAIDs(last time was 1 year ago), has no history of GI bleed or gastritis or ulcer, does not use alcohol or other substances. Patient does not drink coffee. Related Data Allergies Allergy/AdvReac Type Severity Reaction Status Date / Time peanut Allergy Severe Peeling Verified 10/02/22 15:34 skin in mouth Review of Systems <Rani Rojas PA-C - Last Filed: 06/12/23 19:46> Review of Systems ROS Unobtainable: All systems reviewed & are unremarkable except as noted in HPI and below Patient History <aRni Rojas PA-C - Last Filed: 06/12/23 19:46> Medical History Hypothyroidism Social History Smoking Status: Never smoker alcohol intake: current (1-2 drinks/month ) substance use type: marijuana (former, for pain and anxiety ) Smoking Status: Never smoker Substance Use Type: does not use Exam <Rani Rojas PA-C - Last Filed: 06/12/23 19:46> Narrative Exam Narrative: GENERAL: 23 year old patient appears stated age. Well-developed patient, in no distress. NEURO: AOx3. HEAD: Atraumatic. Normocephalic. EYES: Pupils equal round and reactive. Extraocular motions intact. No scleral icterus. No injection or drainage. ENT: Nose without bleeding or purulent drainage. Airway patent. CARDIOVASCULAR: Regular rate and rhythm without murmurs, gallops, or rubs. RESPIRATORY: Clear to auscultation. Breath sounds equal bilaterally. No wheezes, rales, or rhonchi. GASTROINTESTINAL: Active bowel tones. Abdomen soft, non-tender, nondistended. Negative Ramirez's. EXTREMITIES: No edema or joint tenderness. SKIN: No rash or erythema of visible areas Initial Vital Signs Initial Vital Signs: Vital Signs Temperature 98.9 F 06/12/23 13:14 Pulse Rate 82 06/12/23 13:14 Respiratory Rate 16 06/12/23 13:14 Blood Pressure 142/78 H 06/12/23 13:14 Pulse Oximetry 99 06/12/23 13:14 Oxygen Delivery Method Room Air 06/12/23 13:14 <Ching Singleton DO - Last Filed: 06/13/23 09:40> Initial Vital Signs Initial Vital Signs: Vital Signs Temperature 98.9 F 06/12/23 13:14 Pulse Rate 82 06/12/23 13:14 Respiratory Rate 16 06/12/23 13:14 Blood Pressure 142/78 H 06/12/23 13:14 Pulse Oximetry 99 06/12/23 13:14 Oxygen Delivery Method Room Air 06/12/23 13:14 Course <Rani Rojas PA-C - Last Filed: 06/12/23 19:46> Orders Ordered: Discontinued Medications Al Hydrox/Mg Hydrox/Simethicone 20 ml/ Lidocaine HCl 15 ml 0 ml PO NOW ONE Stop: 06/12/23 13:42 Last Admin: 06/12/23 14:03 Dose: 35 ml Documented By: CECILIO Pantoprazole Sodium (Pantoprazole Dr 20 Mg Tablet) 20 mg PO NOW ONE Stop: 06/12/23 13:42 Last Admin: 06/12/23 14:04 Dose: 20 mg Documented By: CECILIO Vital Signs Vital signs: Vital Signs - 8 hr 06/12/23 13:14 06/12/23 16:46 Temperature 98.9 F Pulse Rate 82 83 Respiratory Rate 16 18 Blood Pressure 142/78 H 116/70 Pulse Oximetry 99 97 Oxygen Delivery Method Room Air Room Air <Ching Singleton DO - Last Filed: 06/13/23 09:40> Orders Ordered: Discontinued Medications Al Hydrox/Mg Hydrox/Simethicone 20 ml/ Lidocaine HCl 15 ml 0 ml PO NOW ONE Stop: 06/12/23 13:42 Last Admin: 06/12/23 14:03 Dose: 35 ml Documented By: CECILIO Pantoprazole Sodium (Pantoprazole Dr 20 Mg Tablet) 20 mg PO NOW ONE Stop: 06/12/23 13:42 Last Admin: 06/12/23 14:04 Dose: 20 mg Documented By: CECILIO Vital Signs Vital signs: Vital Signs - 8 hr 06/12/23 13:14 06/12/23 16:46 Temperature 98.9 F Pulse Rate 82 83 Respiratory Rate 16 18 Blood Pressure 142/78 H 116/70 Pulse Oximetry 99 97 Oxygen Delivery Method Room Air Room Air MDM - Abdominal Pain <Rani Rojas PA-C - Last Filed: 06/12/23 19:46> Lab Data 06/12/23 15:20 06/12/23 15:20 Labs: Lab Results 06/12/23 Range/Units 15:20 WBC 11.8 H (4.5-11.0) X10^3/uL RBC 4.85 (4.0-5.2) X10^6/uL Hgb 13.4 (12.0-16.0) g/dL Hct 39.8 (36-46) % MCV 82.1 (80-100) fL MCH 27.6 (26-34) PG MCHC 33.6 (30-36) % RDW 14.3 (11.6-14.8) % Plt Count 311 (150-400) X10^3/uL Neut % (Auto) 76.0 H (50-75) % Lymph % (Auto) 18.9 L (25-40) % Caroline % (Auto) 4.7 (3-14) % Eos % (Auto) 0.1 L (2-4) % Baso % (Auto) 0.3 (0-2) % Neut # (Auto) 9000 H (8135-1195) /uL Lymph # (Auto) 2200 (6929-4465) /uL Caroline # (Auto) 600 (0-900) /uL Eos # (Auto) 0 (0-450) /uL Baso # (Auto) 0 (0-100) /uL Sodium 138 (137-145) mmol/L Potassium 3.6 (3.4-5.1) mmol/L Chloride 106 (98-107) mmol/L Carbon Dioxide 23 (22-32) mmol/L BUN 9 (7-17) mg/dL Creatinine 0.53 (0.52-1.04) mg/dL Estimated GFR > 60 (>60) mL/min BUN/Creatinine Ratio 17.0 (6-22) Glucose 102 H (70-100) mg/dL Calcium 9.4 (8.4-10.2) mg/dL Lipase 58 (23-300) U/L Imaging Data US - abdomen: Radiologist's Impression: PROCEDURE: US ABDOMEN LIMITED INDICATIONS: EPIGASTRIC PAIN TECHNIQUE: Real-time scanning was performed of the abdominal and retroperitoneal organs, with image documentation. COMPARISON: None. FINDINGS: Liver: The liver is poorly visualized. There is likely increased echogenicity. Gallbladder: The gallbladder wall measures 1.2 mm in diameter. Multiple stones are layered in the gallbladder fundus. No pericholecystic fluid. The patient endorses a sonographic Ramirez sign. Biliary ducts: Intrahepatic bile ducts are non-dilated. Extrahepatic bile duct caliber measures 4.1 mm. Normal is 6-7 mm or less in diameter, or 10 mm or less post-cholecystectomy. Pancreas: Visualized portions of the pancreas are sonographically normal. IMPRESSION: 1. Increased hepatic echogenicity noted likely related to fatty infiltration of the liver but other sources of hepatocellular disease cannot be excluded. 2. Cholelithiasis. No gallbladder wall thickening or pericholecystic fluid. However, the patient endorses a positive sonographic Ramirez sign. These findings are equivocal for acute cholecystitis. Dictated by: Inocencia Mejia M.D. on 06/12/2023 at 15:07 Approved by: Inocencia Mejia M.D. on 06/12/2023 at 15:08 MDM Narrative Medical decision making narrative: Multiple etiologies for patient's symptoms considered including, but not limited to: GERD, cholecystitis, pancreatitis, gastritis, PUD, ACS. History most consistent with GERD/gastritis. There is no tenderness over the right upper quadrant or withMurphy's. There has been no nausea, vomiting, fever. Discussed high suspicion of GERD/gastritis, low suspicion for pancreatitis or ACS given patient history and age. We will trial GI cocktail in ER and re- evaluate. If pain still present, we will obtain right upper quadrant ultrasound to evaluate for possible biliary colic/cholecystitis. Pain still present after GI cocktail. Right upper quadrant ultrasound obtained. There are multiple gallstones but no gallbladder wall thickening, no pericholecystic fluid, no ductal dilation. Patient has negative Ramirez's on my exam. Patient has been afebrile, no nausea, minimal leukocytosis. Long discussion with the patient and the mother regarding management of gallstones, biliary colic, GERD. I suggested we trial a proton pump inhibitor with dietary and lifestyle modification, encouraged weight loss given likely fatty liver. If patient develops a fever, vomiting or worsening pain, she should return for evaluation for cholecystitis. If she is having biliary colic, she can contact the surgery clinic and schedule an appointment. Patient's symptoms improved over duration of stay with above-stated therapies. Findings and discharge diagnosis discussed with patient/family followed by verbalization of understanding Return precautions discussed with patient/family whom verbalize understanding of diagnosis and plan <Ching Singleton, - Last Filed: 06/13/23 09:40> Lab Data Labs: Lab Results 06/12/23 Range/Units 15:20 WBC 11.8 H (4.5-11.0) X10^3/uL RBC 4.85 (4.0-5.2) X10^6/uL Hgb 13.4 (12.0-16.0) g/dL Hct 39.8 (36-46) % MCV 82.1 (80-100) fL MCH 27.6 (26-34) PG MCHC 33.6 (30-36) % RDW 14.3 (11.6-14.8) % Plt Count 311 (150-400) X10^3/uL Neut % (Auto) 76.0 H (50-75) % Lymph % (Auto) 18.9 L (25-40) % Caroline % (Auto) 4.7 (3-14) % Eos % (Auto) 0.1 L (2-4) % Baso % (Auto) 0.3 (0-2) % Neut # (Auto) 9000 H (7396-0735) /uL Lymph # (Auto) 2200 (6138-7504) /uL Caroline # (Auto) 600 (0-900) /uL Eos # (Auto) 0 (0-450) /uL Baso # (Auto) 0 (0-100) /uL Sodium 138 (137-145) mmol/L Potassium 3.6 (3.4-5.1) mmol/L Chloride 106 (98-107) mmol/L Carbon Dioxide 23 (22-32) mmol/L BUN 9 (7-17) mg/dL Creatinine 0.53 (0.52-1.04) mg/dL Estimated GFR > 60 (>60) mL/min BUN/Creatinine Ratio 17.0 (6-22) Glucose 102 H (70-100) mg/dL Calcium 9.4 (8.4-10.2) mg/dL Lipase 58 (23-300) U/L Discharge Plan Departure Patient Disposition: Home Clinical Impression: Gallstones without obstruction of gallbladder Qualifiers: Cholelithiasis location: gallbladder Cholecystitis presence: without cholecystitis Qualified Code(s): K80.20 - Calculus of gallbladder without cholecystitis without obstruction GERD (gastroesophageal reflux disease) Qualifiers: Esophagitis presence: esophagitis presence not specified Qualified Code(s): K 21.9 - Gastro-esophageal reflux disease without esophagitis Instructions: DI for Gallstones, DI for Gastroesophageal Reflux Disease (GERD), DI for Nonalcoholic Fatty Liver Disease Activity Restrictions/Additional Instructions: *You have been diagnosed with gallstones without evidence of cholecystitis, which is infection of the gallbladder. I also believe you have some gastroesophageal reflux disease/gastritis, which means extra acid and inflammation of your stomach. I would advise you to take an [id number] proton pump inhibitor medication such as omeprazole or pantoprazole, once daily 1st thing in the morning on an empty stomach. You can eat and drink 30 minutes later. I would advise a low-fat diet to decrease the activity of your gallbladder. If you develop vomiting, worsening pain or fever, you should return to the ER for reassessment. As we discussed, the ultrasound also shows evidence of fatty liver disease. Weight loss is the primary treatment for improving fatty liver disease. If you have questions about the dietary management of these diseases, I would encourage you to follow up with your primary care and seek a referral with the dietitian. I have added Dr. Frank's information below. If you continue to have pain or concerns related to your gallstones, you can contact his office for a follow-up appointment. *What to do: *Please continue to take your regular medications as directed. [ ] New medication prescriptions sent to your pharmacy: [ ] [ ] New medication written as a paper prescription [x] No new medications given *Please follow up with your primary care provider in 2-3 days, call for an appointment. Let them know you were seen in the Emergency Department and that we ask that you be seen in follow up. We will electronically transmit a record of today's note if your PCP is in our system *If you do not have a primary care provider please contact the [facility] Resource line at [phone]. They will ask some questions about your medical history and help get you set up with a doctor in the community. *Return to Emergency Department if you should have any new, worsening or concerning symptoms, such as [fever greater than 101 F, shaking chills, worsening pain, persistent vomiting or other concerning symptoms]. Referrals: Jesse Frank MD [Physician] - Clarita Schmidt DO [Primary Care Provider] - Stand Alone Forms: Patient Portal/API ED Sign-out <Ching Singleton DO - Last Filed: 06/13/23 09:40> Cosign ED Attending Josie Attestation: I was immediately available in the department for consultation.
--- NOTE | 2023-06-12 14:40 | DI.US.S_ITS ---
PROCEDURE: US ABDOMEN LIMITED INDICATIONS: EPIGASTRIC PAIN TECHNIQUE: Real-time scanning was performed of the abdominal and retroperitoneal organs, with image documentation. COMPARISON: None. FINDINGS: Liver: The liver is poorly visualized. There is likely increased echogenicity. Gallbladder: The gallbladder wall measures 1.2 mm in diameter. Multiple stones are layered in the gallbladder fundus. No pericholecystic fluid. The patient endorses a sonographic Ramirez sign. Biliary ducts: Intrahepatic bile ducts are non-dilated. Extrahepatic bile duct caliber measures 4.1 mm. Normal is 6-7 mm or less in diameter, or 10 mm or less post-cholecystectomy. Pancreas: Visualized portions of the pancreas are sonographically normal. IMPRESSION: 1. Increased hepatic echogenicity noted likely related to fatty infiltration of the liver but other sources of hepatocellular disease cannot be excluded. 2. Cholelithiasis. No gallbladder wall thickening or pericholecystic fluid. However, the patient endorses a positive sonographic Ramirez sign. These findings are equivocal for acute cholecystitis. Dictated by: Inocencia Mejia M.D. on 06/12/2023 at 15:07 Approved by: Inocencia Mejia M.D. on 06/12/2023 at 15:08
[2023-06-12 15:45] LABS: Add Manual Diff / Slide Review NO; Basophils Absolute Auto 0 /uL (0-100); Basophils Percent Auto 0.3 % (0-2); Eosinophils Absolute Auto 0 /uL (0-450); Eosinophils Percent Auto 0.1 % (2-4); Hematocrit 39.8 % (36-46); Hemoglobin 13.4 g/dL (12.0-16.0); Lymphocytes Absolute Auto 2200 /uL (1100-4500); Lymphocytes Percent Auto 18.9 % (25-40); Mean Corpuscular HGB Conc 33.6 % (30-36); Mean Corpuscular Hemoglobin 27.6 PG (26-34); Mean Corpuscular Volume 82.1 fL (80-100); Monocytes Absolute Auto 600 /uL (0-900); Monocytes Percent Auto 4.7 % (3-14); Neutrophils Absolute Auto 9000 /uL (1500-7000); Platelet Count 311 X10^3/uL (150-400); Red Blood Cell Count 4.85 X10^6/uL (4.0-5.2); Red Cell Distribution Width 14.3 % (11.6-14.8); White Blood Cell Count 11.8 X10^3/uL (4.5-11.0)
[2023-06-12 16:00] LABS: Blood Urea Nitrogen 9 mg/dL (7-17); Calcium 9.4 mg/dL (8.4-10.2); Carbon Dioxide 23 mmol/L (22-32); Chloride 106 mmol/L (98-107); Estimated Glomerular Filt Rate > 60 mL/min (>60); Glucose 102 mg/dL (70-100); HEMOLYSIS < 15 (0-50); Lipase 58 U/L (23-300); Potassium 3.6 mmol/L (3.4-5.1); Sodium 138 mmol/L (137-145)
[2023-06-12 16:46] VITALS: BP 116/70; PULSE 83; RESP 18; O2SAT 97
== END 2023-06-12 16:47 | disposition home or self-care (01) ==
PROVIDERS: Emergency Provider Physician Assistant; PCP Family Medicine
DX: K80.20 Calculus of gallbladder without cholecystitis without obstruction (principal); K21.9 Gastro-esophageal reflux disease without esophagitis
CPT/HCPCS: 36415; 76705; 80048; 83690; 85025; 99284

== ENCOUNTER → 2023-09-10 11:32 | Outpatient (CLI) | payer OTHER, MEDICAID, SELFPAY ==
--- NOTE | 2023-09-10 12:48 | DI.RAD.S_ITS ---
PROCEDURE: XR RIBS LT MIN 3V W CXR1V INDICATIONS: Left lower rib pain TECHNIQUE: 4 views of the ribs were acquired, along with a single view chest. COMPARISON: None. FINDINGS: Surgical changes and devices: None. Bones and chest wall: No fractures or dislocations. No suspicious bony lesions. Overlying soft tissues appear unremarkable. Lungs and pleura: No pleural effusions or pneumothorax. Lungs appear clear. Mediastinum: Mediastinal contours appear normal. Heart size is normal. IMPRESSION: No visualized acute fracture or dislocation. However, if clinical concern and/or pain persist, short interval imaging followup in 7-10 days is recommended, as occult injury cannot be definitively excluded. Dictated by: Josee Shields M.D. on 09/10/2023 at 13:39 Approved by: Josee Shields M.D. on 09/10/2023 at 13:55
== END ==
PROVIDERS: PCP Family Medicine; Referring Provider Physician Assistant Surgical; Visit Provider Physician Assistant Surgical
DX: R07.81 Pleurodynia (principal)
CPT/HCPCS: 71101